=== PATIENT | female | born 1940 | race Caucasian/White ===

== ENCOUNTER 2019-05-12 12:16 | Emergency (ER) | payer OTHER ==
[2019-05-12 13:00] VITALS: TEMP 98.2; BMI 29.5
--- NOTE | 2019-05-12 13:26 | PDOC ---
History of Present Illness - General Chief Complaint: Injury Stated Complaint: FALL Time Seen by Provider: 05/12/19 13:19 Past History - Past Medical History Allergies/Adverse Reactions: Allergies Allergy/AdvReac Type Severity Reaction Status Date / Time midazolam [From Versed] Allergy Verified 05/12/19 16:33 - Suicide/Smoking/Psychosocial Hx Smoking History: Never smoked Have you smoked in the past 12 months: No Information on smoking cessation initiated: No Hx Alcohol Use: No Drug/Substance Use Hx: No *Physical Exam - Vital Signs Last Vital Signs Temp Pulse Resp BP Pulse Ox 98.2 F 70 17 108/50 L 92 L 05/12/19 12:54 05/12/19 12:54 05/12/19 12:54 05/12/19 12:54 05/12/19 12:54 ED Treatment Course - LABORATORY CBC & Chemistry Diagram: 05/12/19 14:45 05/12/19 14:45 *DC/Admit/Observation/Transfer Diagnosis at time of Disposition: Laceration Fall Qualifiers: Encounter type: initial encounter Qualified Code(s): W19.XXXA - Unspecified fall, initial encounter Head injury Qualifiers: Encounter type: initial encounter Qualified Code(s): S09.90XA - Unspecified injury of head, initial encounter - Discharge Dispostion Disposition: HOME Condition at time of disposition: Stable Decision to Admit order: No - Referrals Referrals: Octavio Barroso MD [Staff Physician] - - Patient Instructions Printed Discharge Instructions: DI for Laceration Repair With Dermabond, DI for Closed Head Injury Additional Instructions: You were evaluated after your fall today. Your CAT scan was negative for any bleeds. You most likely have a concussion. You may take Tylenol 650 mg every 6 hours as needed for pain. Your cut was fixed with Dermabond today (glue) This will follow-up on its own. Do not get it wet for 24 hours. Do not scrub over the area until the glue has fallen off. Follow-up with your neurologist this week. Return to the ER for lightheadedness, dizziness, worsening headache, or if you have any changes in your symptoms. - Post Discharge Activity Forms/Work/School Notes: Back to Work
--- NOTE | 2019-05-12 13:41 | PDOC ---
*Physical Exam - Vital Signs Last Vital Signs Temp Pulse Resp BP Pulse Ox 98.2 F 70 17 108/50 L 92 L 05/12/19 12:54 05/12/19 12:54 05/12/19 12:54 05/12/19 12:54 05/12/19 12:54 ED Treatment Course - LABORATORY CBC & Chemistry Diagram: 05/12/19 14:45 05/12/19 14:45 Medical Decision Making - Medical Decision Making 05/12/19 13:41 Pt seen by Midlevel Provider under my direct supervision Ancillary studies reviewed I agree with plan as outlined by Midlevel Provider *DC/Admit/Observation/Transfer Diagnosis at time of Disposition: Fall, Laceration, Head injury - Discharge Dispostion Disposition: HOME Condition at time of disposition: Stable - Referrals Referrals: Octavio Barroso MD [Staff Physician] - - Patient Instructions Printed Discharge Instructions: DI for Laceration Repair With Dermabond, DI for Closed Head Injury Additional Instructions: You were evaluated after your fall today. Your CAT scan was negative for any bleeds. You most likely have a concussion. You may take Tylenol 650 mg every 6 hours as needed for pain. Your cut was fixed with Dermabond today (glue) This will follow-up on its own. Do not get it wet for 24 hours. Do not scrub over the area until the glue has fallen off. Follow-up with your neurologist this week. Return to the ER for lightheadedness, dizziness, worsening headache, or if you have any changes in your symptoms. - Post Discharge Activity Forms/Work/School Notes: Back to Work
[2019-05-12] MEDS ORDERED: ONDANSETRON *ODT* 4 MG TABLET SL ONE (14:02)
[2019-05-12] MEDS ORDERED: SODIUM CHLORIDE 1,000 ML IV STA (14:02)
[2019-05-12] MEDS ORDERED: ACETAMINOPHEN 1000 MG/100 ML VIAL (NON FORMULARY) IVPB ONE (14:05)
[2019-05-12] MEDS ORDERED: ACETAMINOPHEN INJECTION 100 ML IVPB ONE (14:54)
[2019-05-12] MEDS ORDERED: ONDANSETRON 4 MG/2 ML VIAL ONE (14:54)
[2019-05-12 14:59] LABS: BASO % 0.6 % (0-2.0); EOS % 0.2 % (0-4.5); HEMATOCRIT 39.2 % (32.4-45.2); HEMOGLOBIN 13.5 GM/dL (10.7-15.3); LYMPH % 7.4 % (8-40); MCH 30.4 pg (25.7-33.7); MCHC 34.4 g/dl (32.0-36.0); MEAN CELL VOLUME 88.6 fl (80-96); MEAN PLT VOLUME 10.3 fl (7.5-11.1); MONO % 4.7 % (3.8-10.2); NEUT % 87.1 % (42.8-82.8); PLATELET COUNT 153 K/MM3 (134-434); RBC 4.42 M/mm3 (3.60-5.2); RDW 14.2 % (11.6-15.6); WHITE BLOOD COUNT 7.4 K/mm3 (4.0-10.0)
[2019-05-12 15:22] LABS: INR 1.14 (0.83-1.09); PROTHROMBIN TIME (PATIENT) 13.5 SEC (9.7-13.0)
[2019-05-12 15:27] LABS: ALBUMIN 3.8 g/dl (3.4-5.0); BILIRUBIN,TOTAL 1.8 mg/dL (0.2-1); CALCIUM 9.2 mg/dL (8.5-10.1); CREATININE 0.9 mg/dL (0.55-1.3); POTASSIUM 4.2 mmol/L (3.5-5.1); TOT PROT 6.6 g/dl (6.4-8.2)
[2019-05-12] MEDS ORDERED: ONDANSETRON *ODT* 4 MG TABLET ONE (15:29)
[2019-05-12 19:50] VITALS: BP 119/65; PULSE 69
== END 2019-05-12 19:49 | disposition home or self-care (01) ==
LOC: JER 12:16
PROC: 3E033NZ Introduction of Analgesics, Hypnotics, Sedatives into Peripheral Vein, Percutaneous Approach (ICD-10-PCS; principal; 2019-05-12)
PROC: 3E0337Z Introduction of Electrolytic and Water Balance Substance into Peripheral Vein, Percutaneous Approach (ICD-10-PCS; 2019-05-12)
DX: S01.91XA Laceration without foreign body of unspecified part of head, initial encounter (principal); S09.90XA Unspecified injury of head, initial encounter
CPT/HCPCS: 36415; 70450-TC; 80053; 85025; 85610; 99283-25; J0131; J7030; Q0162

== ENCOUNTER 2022-09-08 20:35 | Emergency (ER) | payer OTHER ==
[2022-09-08 20:55] VITALS: BP 133/86; PULSE 92; RESP 20; TEMP 98.3; BMI 28.1
[2022-09-08] MEDS ORDERED: SODIUM CHLORIDE 0.9% 500 ML INFUS.BAG IV ONE (21:19)
[2022-09-08 22:26] LABS: BASO % 0.6 % (0-2.0); EOS % 0.6 % (0-4.5); HEMATOCRIT 39.6 % (32.4-45.2); HEMOGLOBIN 13.6 GM/dL (10.7-15.3); LYMPH % 12.1 % (8-40); MCH 30.4 pg (25.7-33.7); MCHC 34.2 g/dl (32.0-36.0); MEAN PLT VOLUME 9.6 fl (7.5-11.1); MONO % 8.3 % (3.8-10.2); NEUT % 78.4 % (42.8-82.8); PLATELET COUNT 166 10^3/uL (134-434); RBC 4.45 M/mm3 (3.60-5.2); RDW 14.1 % (11.6-15.6); WHITE BLOOD COUNT 7.8 K/mm3 (4.0-10.0)
[2022-09-08 22:46] LABS: CALCIUM 8.9 mg/dL (8.5-10.1)
[2022-09-08 22:47] LABS: ALBUMIN 3.8 g/dl (3.4-5.0)
[2022-09-08 22:50] LABS: CREATININE 1.2 mg/dL (0.55-1.3)
[2022-09-08 22:52] LABS: BILIRUBIN,TOTAL 1.8 mg/dL (0.2-1); TOT PROT 6.6 g/dl (6.4-8.2)
== END 2022-09-09 01:58 | disposition home or self-care (01) ==
LOC: JERFT 20:35
DX: R42 Dizziness and giddiness (principal)
CPT/HCPCS: 36415; 80053; 84484; 85025; 93005; 93010; 99284-25